=== PATIENT | female | born 2000 | race Caucasian/White ===

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

== ENCOUNTER → 2019-08-24 | Outpatient (CLI) | payer OTHER | END | disposition home or self-care (01) | LOC: RAD 15:56 | DX: R06.02 Shortness of breath (principal) ==

== ENCOUNTER 2019-12-03 14:51 | Emergency (ER) | payer OTHER ==
[~2019-12-03] VITALS: Ht 154.9 cm; Wt 86.2 kg
[2019-12-03 14:52] VITALS: BP 128/78
[2019-12-03 16:19] LABS: BILIRUBIN NEGATIVE (NEGATIVE); BLOOD NEGATIVE (NEGATIVE); CLARITY CLEAR (CLEAR); COLOR YELLOW (YELLOW); GLUCOSE NEGATIVE (NEGATIVE); KETONE NEGATIVE (NEGATIVE); LEUKO ESTERASE 1+ (NEGATIVE); NITRITE NEGATIVE (NEGATIVE); SPECIFIC GRAVITY >= 1.030 (1.005-1.030); UROBILINOGEN 0.2 E.U./dl (0.2-1.0)
[2019-12-03 16:26] LABS: BACTERIA 2+; EPITHELIAL CELLS 20-25; MUCOUS TRACE; RBC 0-2 rbc/hpf (0-2)
[2019-12-03] MEDS ORDERED: CEPHALEXIN500 M1 PO (16:35)
[2019-12-03] MEDS ORDERED: PYRIDIUM100 MG PO (16:35)
== END 2019-12-03 16:44 | disposition home or self-care (01) ==
LOC: ED 14:51
PROVIDERS: Nurse Practitioner Family
DX: N39.0 Urinary tract infection, site not specified (principal); Z88.2 Allergy status to sulfonamides; Z91.030 Bee allergy status

== ENCOUNTER 2020-01-10 00:55 | Emergency (ER) | payer OTHER ==
[~2020-01-10] VITALS: Ht 154.9 cm; Wt 86.2 kg
[~2020-01-10 00:55] MED LIST changes: +CEPHALEXIN500 M1 PO; +PYRIDIUM100 MG PO
[2020-01-10 01:34] LABS: BASO % 0.4 % (0.0-1.0); EOS # 0.2 10*3/uL (0.0-0.4); EOS % 1.9 % (1.0-4.0); HEMATOCRIT 35.9 % (37.0-47.0); HEMOGLOBIN 11.6 g/dl (12.0-16.0); LYMPH # 3.7 10*3/uL (1.3-4.4); LYMPH % 34.2 % (27.0-41.0); MEAN CELL VOLUME 85.1 fl (81.0-99.0); MEAN CORPUSCULAR HGB 27.5 pg (27.0-31.0); MEAN CORPUSCULAR HGB CONC 32.3 g/dl (33.0-37.0); MEAN PLATELET VOLUME 10.5 fl (9.6-12.3); MONO # 1.2 10*3/uL (0.1-1.0); MONO % 10.9 % (3.0-9.0); NEUT # 5.6 10*3/uL (2.3-7.9); NEUT % 52.3 % (47.0-73.0); PLATELET COUNT AUTOMATED 344 10*3/uL (130-400); RED BLOOD COUNT 4.22 10*6/uL (4.10-5.10); WHITE BLOOD COUNT 10.8 10*3/uL (4.8-10.8)
[2020-01-10 01:44] LABS: INTERNATIONAL NORM RATIO 0.9 (2.0-3.5)
[2020-01-10 01:55] LABS: ALBUMIN 3.7 gm/dl (3.1-4.5); ALKALINE PHOSPHATASE 56 U/L (45-117); BUN 13 mg/dl (7-24); CHLORIDE 110 mmol/L (98-107); CREATININE 0.93 mg/dL (0.55-1.02); POTASSIUM 4.4 mmol/L (3.5-5.1); SGOT/AST 15 IU/L (3-35); SGPT/ALT 20 U/L (12-78); SODIUM 141 mmol/L (136-145); TOTAL PROTEIN 7.3 gm/dL (6.4-8.2)
[2020-01-10 01:56] LABS: TROPONIN I < 0.015 ng/ml (<0.045)
[2020-01-10 02:15] VITALS: BP 110/60
== END 2020-01-10 02:35 | disposition home or self-care (01) ==
LOC: ED 00:55
PROVIDERS: Physician Assistant
DX: R00.2 Palpitations (principal); F12.90 Cannabis use, unspecified, uncomplicated; G43.909 Migraine, unspecified, not intractable, without status migrainosus; F17.200 Nicotine dependence, unspecified, uncomplicated; Z88.2 Allergy status to sulfonamides; Z79.2 Long term (current) use of antibiotics; Z79.899 Other long term (current) drug therapy

== ENCOUNTER 2020-08-05 18:44 | Emergency (ER) | payer OTHER ==
[~2020-08-05] VITALS: Ht 154.9 cm; Wt 86.2 kg
[2020-08-05 18:48] VITALS: BP 126/81
[2020-08-05 19:42] LABS: BILIRUBIN NEGATIVE; CLARITY CLEAR (CLEAR); COLOR YELLOW (YELLOW); GLUCOSE NEGATIVE; KETONE NEGATIVE; SPECIFIC GRAVITY 1.005 (1.001-1.030)
[2020-08-05 19:43] LABS: BACTERIA 1+; BLOOD TRACE-INTACT (NEGATIVE); LEUKO ESTERASE TRACE (NEGATIVE); NITRITE NEGATIVE (NEGATIVE); RBC 0-2 rbc/hpf (0-2); UROBILINOGEN 0.2 E.U./dl (0.0-1.0)
[2020-08-05] MEDS ORDERED: FLUCONAZOLE100 MG PO (20:21)
== END 2020-08-05 20:27 | disposition home or self-care (01) ==
LOC: ED 18:44
PROVIDERS: Nurse Practitioner Family
DX: B37.3 Candidiasis of vulva and vagina (principal); Z88.2 Allergy status to sulfonamides

== ENCOUNTER 2021-12-02 15:53 | Emergency (ER) | payer OTHER ==
[~2021-12-02] VITALS: Ht 154.9 cm; Wt 86.2 kg
[~2021-12-02 15:53] MED LIST changes: +FLUCONAZOLE100 MG PO
[2021-12-02 16:01] VITALS: BP 122/84
[2021-12-02 17:42] LABS: BASO % 0.3 % (0.0-1.0); EOS % 0.3 % (1.0-4.0); HEMATOCRIT 39.4 % (37.0-47.0); LYMPH # 1.3 10*3/uL (1.3-4.4); LYMPH % 16.2 % (27.0-41.0); MEAN CELL VOLUME 85.8 fl (81.0-99.0); MEAN CORPUSCULAR HGB 27.5 pg (27.0-31.0); MEAN PLATELET VOLUME 10.1 fl (9.6-12.3); MONO # 1.1 10*3/uL (0.1-1.0); MONO % 13.9 % (3.0-9.0); NEUT # 5.4 10*3/uL (2.3-7.9); NEUT % 68.9 % (47.0-73.0); PLATELET COUNT AUTOMATED 339 10*3/uL (130-400); RED BLOOD COUNT 4.59 10*6/uL (4.10-5.10); RED CELL DISTRI WIDTH 14.2 % (0-14.5); WHITE BLOOD COUNT 7.9 10*3/uL (4.8-10.8)
[2021-12-02 17:46] LABS: BILIRUBIN Negative (Negative); BLOOD Negative (Negative); CLARITY Clear (Clear); COLOR Yellow (Yellow); GLUCOSE Negative (Negative); KETONE Negative (Negative); LEUKO ESTERASE Negative (Negative); NITRITE Negative (Negative); PH 6.5 (4.5-8.0); SPECIFIC GRAVITY <= 1.005 (1.001-1.030); UROBILINOGEN 0.2 E.U./dl (0.0-1.0)
[2021-12-02 17:56] LABS: BACTERIA 2+; RBC 0-2 rbc/hpf (0-2)
[2021-12-02 17:58] LABS: ALBUMIN 3.5 gm/dl (3.1-4.5); ALKALINE PHOSPHATASE 60 U/L (45-117); BUN 11 mg/dl (7-24); CHLORIDE 107 mmol/L (98-107); CREATININE 0.97 mg/dL (0.55-1.02); POTASSIUM 3.8 mmol/L (3.5-5.1); SGOT/AST 8 IU/L (3-35); SGPT/ALT 18 U/L (12-78); SODIUM 140 mmol/L (136-145); TOTAL PROTEIN 7.5 gm/dL (6.4-8.2)
== END 2021-12-02 18:55 | disposition home or self-care (01) ==
LOC: ED 15:53
PROVIDERS: Emergency Medicine; Nurse Practitioner Family
DX: B34.9 Viral infection, unspecified (principal); Z20.822 Contact with and (suspected) exposure to COVID-19

== ENCOUNTER → 2022-03-26 | Outpatient (CLI) | payer OTHER ==
[2022-03-26 12:53] LABS: BASO % 0.4 % (0.0-1.0); EOS # 0.2 10*3/uL (0.0-0.4); EOS % 1.9 % (1.0-4.0); HEMATOCRIT 36.7 % (37.0-47.0); LYMPH # 3.5 10*3/uL (1.3-4.4); LYMPH % 33.6 % (27.0-41.0); MEAN CELL VOLUME 85.3 fl (81.0-99.0); MEAN CORPUSCULAR HGB 27.2 pg (27.0-31.0); MEAN CORPUSCULAR HGB CONC 31.9 g/dl (33.0-37.0); MEAN PLATELET VOLUME 9.7 fl (9.6-12.3); MONO % 9.6 % (3.0-9.0); NEUT # 5.7 10*3/uL (2.3-7.9); NEUT % 54.2 % (47.0-73.0); PLATELET COUNT AUTOMATED 418 10*3/uL (130-400); RED CELL DISTRI WIDTH 14.1 % (0-14.5); WHITE BLOOD COUNT 10.5 10*3/uL (4.8-10.8)
[2022-03-26 13:13] LABS: ALKALINE PHOSPHATASE 53 U/L (45-117); BUN 9 mg/dl (7-24); CHLORIDE 109 mmol/L (98-107); CREATININE 0.71 mg/dL (0.55-1.02); POTASSIUM 4.1 mmol/L (3.5-5.1); SGOT/AST 12 IU/L (3-35); SGPT/ALT 19 U/L (12-78); SODIUM 140 mmol/L (136-145); TOTAL PROTEIN 7.8 gm/dL (6.4-8.2)
[2022-03-26 13:17] LABS: T3 UPTAKE 32 % (31-39)
[2022-03-27 07:06] LABS: FOLLICLE STIMULATING HORMONE 10.1 mIU/mL (.); LUTEINIZING HORMONE 6.4 mIU/mL (.)
[2022-03-29 06:08] LABS: HSV-2 DNA Negative (Negative)
[2022-03-29 11:07] LABS: FREE & WEAKLY BOUND 1.2 ng/dL (0.0-9.5); FREE+WEAKLY BOUND% 11.1 % (3.0-18.0)
== END | disposition home or self-care (01) ==
LOC: LAB 11:55
PROVIDERS: ATTEND Family Medicine
DX: Z13.6 Encounter for screening for cardiovascular disorders (principal); R68.82 Decreased libido; Z11.3 Encounter for screening for infections with a predominantly sexual mode of transmission; Z76.89 Persons encountering health services in other specified circumstances

== ENCOUNTER 2022-07-08 17:36 | Emergency (ER) | payer SELFPAY ==
[~2022-07-08] VITALS: Wt 86.2 kg
[2022-07-08 17:52] VITALS: BP 106/72
[2022-07-08] MEDS ORDERED: PENICILLIN VK500 MG PO (18:13)
== END 2022-07-08 18:30 | disposition home or self-care (01) ==
LOC: ED 17:36
DX: A64 Unspecified sexually transmitted disease (principal); J02.9 Acute pharyngitis, unspecified; Z88.2 Allergy status to sulfonamides

== ENCOUNTER 2022-08-06 20:39 | Emergency (ER) | payer SELFPAY ==
[~2022-08-06] VITALS: Ht 152.4 cm; Wt 86.2 kg
[~2022-08-06 20:39] MED LIST changes: +PENICILLIN VK500 MG PO
[2022-08-06 20:49] VITALS: BP 121/82
[2022-08-06] MEDS ORDERED: SYNTHROID,LEVO75 MCG PO (20:50)
[2022-08-06 21:34] LABS: BASO % 0.2 % (0.0-1.0); EOS # 0.1 10*3/uL (0.0-0.4); EOS % 0.7 % (1.0-4.0); HEMATOCRIT 36.5 % (37.0-47.0); LYMPH # 2.3 10*3/uL (1.3-4.4); MEAN CELL VOLUME 83.9 fl (81.0-99.0); MEAN CORPUSCULAR HGB 27.1 pg (27.0-31.0); MEAN CORPUSCULAR HGB CONC 32.3 g/dl (33.0-37.0); MEAN PLATELET VOLUME 9.7 fl (9.6-12.3); MONO % 8.5 % (3.0-9.0); NEUT # 8.6 10*3/uL (2.3-7.9); NEUT % 71.4 % (47.0-73.0); PLATELET COUNT AUTOMATED 415 10*3/uL (130-400); RED BLOOD COUNT 4.35 10*6/uL (4.10-5.10); RED CELL DISTRI WIDTH 14.5 % (0-14.5); WHITE BLOOD COUNT 12.1 10*3/uL (4.8-10.8)
[2022-08-06 21:49] LABS: ALKALINE PHOSPHATASE 65 U/L (45-117); BUN 8 mg/dl (7-24); CHLORIDE 107 mmol/L (98-107); POTASSIUM 3.7 mmol/L (3.5-5.1); SGOT/AST 13 IU/L (3-35); SGPT/ALT 22 U/L (12-78); SODIUM 139 mmol/L (136-145); TOTAL PROTEIN 8.1 gm/dL (6.4-8.2)
[2022-08-06 21:51] LABS: B-hCG (QUALITATIVE) NEGATIVE (NEGATIVE)
[2022-08-06] MEDS ORDERED: AMOX-CLAV 875-1 EACH PO (22:56)
== END 2022-08-06 23:15 | disposition left against medical advice (07) ==
LOC: ED 20:39
PROVIDERS: Emergency Medicine
DX: R59.0 Localized enlarged lymph nodes (principal); Z88.1 Allergy status to other antibiotic agents; Z79.899 Other long term (current) drug therapy